=== PATIENT | female | born 1995 | race Caucasian/White ===

== ENCOUNTER 2023-05-12 14:13 | Emergency (ER) | payer OTHER, MEDICAID, SELFPAY ==
[2023-05-12 14:47] VITALS: BP 175/74; PULSE 92; RESP 20; TEMP 36.5; O2SAT 100; BMI 25.2
--- NOTE | 2023-05-12 15:06 | ED.ABDPAIN ---
HPI - Abdominal Pain <Marichuy Barrow PA-C - Last Filed: 05/12/23 21:14> General Chief Complaint: Abdominal Pain Stated Complaint: rt side abd pain Time Seen by Provider: 05/12/23 14:50 Source: patient Mode of arrival: Ambulatory History of Present Illness HPI narrative: This is a 27-year-old female who presents with concern for right low 7/10 abdominal pain present for 5 days but worsening yesterday and today. Patient states that the pain began 5 days ago and initially felt a little bit low like it might be in her bladder on the right side and then she says she felt it gradually creeping up her side on the front and getting higher up in her belly. She says the pain is worse when she is sitting and worse with moving her leg on the right. She describes it as an intense and constant aching pain. She has not had fevers or chills and says her appetite has been okay. She did have 1 episode of vomiting due to the pain 3 days ago. She has had slightly softer than usual stools but no diarrhea or constipation. She denies any chance of states her last menstrual period ended on April 19 and her menses are regular approximately 35 days apart. She does endorse having extremely painful menses when they happen. She denies any urinary symptoms of urgency or frequency but does state that she is noticed that her urine feels hot sometimes when she pees recently. She can not think of anything that she did physically that might have pulled a muscle or triggered her symptoms. She denies fevers chills or any other symptoms. Also denies any concern for states she is with 1 partner who has vasectomy, and has had no concern for sexually transmitted infections and no change in vaginal discharge. Related Data Previous Rx's Medication Instructions Recorded nitrofurantoin 100 mg PO BID 7 days #14 caps 05/12/23 monohydrate/macrocrystals 100 mg capsule (Macrobid) Allergies Allergy/AdvReac Type Severity Reaction Status Date / Time Sulfa (Sulfonamide Allergy Intermediate Hives Verified 05/12/23 11:41 Antibiotics) Review of Systems <Marichuy Barrow PA-C - Last Filed: 05/12/23 21:14> Review of Systems Narrative: See HPI Patient History <Marichuy Barrow PA-C - Last Filed: 05/12/23 21:14> Social History Smoking Status: Current every day smoker Smoking Status: Current every day smoker alcohol intake frequency: holidays/special occasions only Substance Use Type: marijuana Exam <Marichuy Barrow PA-C - Last Filed: 05/12/23 21:14> Narrative Exam Narrative: GENERAL: [27] year old patient appears stated age. Well-developed patient, in mild distress, uncomfortable appearing, standing up as it is more comfortable than sitting due to the pain. HEAD: Atraumatic. Normocephalic. EYES: Pupils equal round and reactive. Extraocular motions intact. No scleral icterus. No injection or drainage. ENT: Nose without bleeding, purulent drainage. Airway patent. NECK: Trachea midline. Non tender CARDIOVASCULAR: Regular rate and rhythm without murmurs, gallops, or rubs. RESPIRATORY: Clear to auscultation. Breath sounds equal bilaterally. No wheezes, rales, or rhonchi. GASTROINTESTINAL: Abdomen soft, there is moderate tenderness in the right lower quadrant, positive Rovsing sign, positive obturator sign, pain increases with percussion over the right lower quadrant, mild suprapubic tenderness otherwise non-tender, nondistended, there is no flank tenderness noted/no CVA tenderness. EXTREMITIES: No edema or joint tenderness. BACK: Nontender without deformity or crepitance. No flank tenderness. NEURO: AOx3. SKIN: No rash or erythema of visible areas Initial Vital Signs Initial Vital Signs: Vital Signs Temperature 97.7 F 05/12/23 14:47 Pulse Rate 92 H 05/12/23 14:47 Respiratory Rate 05/12/23 14:47 Blood Pressure 175/74 H 05/12/23 14:47 Pulse Oximetry 100 05/12/23 14:47 Oxygen Delivery Method Room Air 05/12/23 14:47 <Erendira Davies DO - Last Filed: 05/13/23 09:49> Initial Vital Signs Initial Vital Signs: Vital Signs Temperature 97.7 F 05/12/23 14:47 Pulse Rate 92 H 05/12/23 14:47 Respiratory Rate 20 05/12/23 14:47 Blood Pressure 175/74 H 05/12/23 14:47 Pulse Oximetry 100 05/12/23 14:47 Oxygen Delivery Method Room Air 05/12/23 14:47 Course <Marichuy Barrow PA-C - Last Filed: 05/12/23 21:14> Orders Ordered: Discontinued Medications Acetaminophen (Acetaminophen 325 Mg Tablet) 650 mg PO NOW ONE Stop: 05/12/23 15:08 Last Admin: 05/12/23 15:25 Dose: 650 mg Documented By: NEHA Ketorolac Tromethamine (Ketorolac 30 Mg/Ml Vial) 15 mg IV NOW ONE Stop: 05/12/23 15:08 Last Admin: 05/12/23 15:26 Dose: 15 mg Documented By: NEHA Vital Signs Vital signs: Vital Signs - 8 hr 05/12/23 14:47 05/12/23 18:11 Temperature 97.7 F 98.2 F Pulse Rate 92 H 80 Respiratory Rate 20 18 Blood Pressure 175/74 H 126/75 Pulse Oximetry 100 100 Oxygen Delivery Method Room Air Room Air <Erendira Davies DO - Last Filed: 05/13/23 09:49> Orders Ordered: Discontinued Medications Acetaminophen (Acetaminophen 325 Mg Tablet) 650 mg PO NOW ONE Stop: 05/12/23 15:08 Last Admin: 05/12/23 15:25 Dose: 650 mg Documented By: NEHA Ketorolac Tromethamine (Ketorolac 30 Mg/Ml Vial) 15 mg IV NOW ONE Stop: 05/12/23 15:08 Last Admin: 05/12/23 15:26 Dose: 15 mg Documented By: NEHA Vital Signs Vital signs: Vital Signs - 8 hr 05/12/23 14:47 05/12/23 18:11 Temperature 97.7 F 98.2 F Pulse Rate 92 H 80 Respiratory Rate 20 18 Blood Pressure 175/74 H 126/75 Pulse Oximetry 100 100 Oxygen Delivery Method Room Air Room Air MDM - Abdominal Pain <Marichuy Barrow PA-C - Last Filed: 05/12/23 21:14> Differential Diagnosis Differential diagnosis: Likely abdominal pain, acute appendicitis, constipation, endometriosis, pancreatitis, small bowel obstruction and other (UTI, pyelonephritis, ureterolithiasis) Medical Records Attestation: I reviewed the patient's medical records. Lab Data Attestation: I reviewed the patient's lab results. 05/12/23 15:00 05/12/23 15:00 Labs: Lab Results 05/12/23 05/12/23 Range/Units 15:00 15:16 WBC 8.4 (4.5-11.0) X10^3/uL RBC 4.62 (4.0-5.2) X10^6/uL Hgb 13.9 (12.0-16.0) g/dL Hct 40.6 (36-46) % MCV 87.8 (80-100) fL MCH 30.2 (26-34) PG MCHC 34.4 (30-36) % RDW 12.6 (11.6-14.8) % Plt Count 287 (150-400) X10^3/uL Neut % (Auto) 65.1 (50-75) % Lymph % (Auto) 26.1 (25-40) % [place] % (Auto) 6.8 (3-14) % Eos % (Auto) 0.8 L (2-4) % Baso % (Auto) 1.2 (0-2) % Neut # (Auto) 5500 (8528-1078) /uL Lymph # (Auto) 2200 (4882-0953) /uL [place] # (Auto) 600 (0-900) /uL Eos # (Auto) 100 (0-450) /uL Baso # (Auto) 100 (0-100) /uL Sodium 136 L (137-145) mmol/L Potassium 3.6 (3.4-5.1) mmol/L Chloride 102 (98-107) mmol/L Carbon Dioxide 23 (22-32) mmol/L BUN 12 (7-17) mg/dL Creatinine 0.68 (0.52-1.04) mg/dL Estimated GFR > 60 (>60) mL/min BUN/Creatinine Ratio 17.6 (6-22) Glucose 103 H (70-100) mg/dL Calcium 10.2 (8.4-10.2) mg/dL Total Bilirubin 0.6 (0.2-1.3) mg/dL AST 25 (14-36) IU/L ALT 16 (<35) IU/L Alkaline Phosphatase 58 (38-126) U/L C-Reactive Protein 0.9 (<1.0) mg/dL Total Protein 8.4 H (6.3-8.2) g/dL Albumin 4.7 (3.5-5.0) g/dL Globulin 3.7 (1.7-4.1) g/dL Albumin/Globulin Ratio 1.3 (1.0-2.8) Lipase 68 (23-300) U/L Urine Color Yellow Urine Appearance Clear Urine pH 5.0 (4.5-8.0) Ur Specific [place] 1.025 (1.000-1.035) Urine Protein Negative (Negative) Urine Glucose (UA) Negative (Negative) g/dL Urine Ketones Trace H (NEGATIVE) Urine Occult Blood Trace-intact (Negative) Urine Nitrate Negative (Negative) Urine Bilirubin Negative (NEGATIVE) Urine Urobilinogen 0.2 (0.2) E.U./dL Ur Leukocyte Esterase 1+ H (NEGATIVE) Urine RBC 0-1/hpf (0-5/HPF) Urine WBC 5-10/hpf H (0-5/HPF) Ur Squamous Epith Cells 1-5 /hpf (0-5/HPF) Urine Bacteria Occasional (0-1) (None) Ur Culture Indicated? Specimen cultured Vol Urine Centrifuged 10ml (spun) Point of care testing: Point of Care Testing Test Results Negative Urine Dip Bedside Urine Glucose Negative Bedside Urine Bilirubin - Negative Bedside Urine Ketone +/- 5 Urine Specific [place] 1.030 Bedside Urine Occult Blood +/- Bedside Urine pH 6.0 Bedside Urine Protein - Negative Bedside Urine Urobilinogen - Negative Bedside Urine Nitrite - Negative Bedside Urine Leukocytes + [address] scan - abdomen/pelvis: My Impression: See below Radiologist's Impression: Radiology read print out was not obtainable during this patient's stay/at time of chart completion due to system wide computer air not transferring these to [email or web address] charting system. Did discuss this patient with Radiology prior to discharge and they advised that her imaging read showed no evidence of appendicitis; normal appearing CT scan; they did note that there was a small amount of free fluid in the pelvis however that this was in an amount consistent with a physiologically normal finding for this 27-year-old menstruating patient. Treatment and Disposition Shared decision making:: Shared decision-making was used in determining plan for evaluation today in the emergency department plan for outpatient follow-up MDM Narrative Medical decision making narrative: This is an uncomfortable appearing previously healthy 27-year-old woman with no history of similar who presented with 5 days of right-sided abdominal pain worsening yesterday and today 7/10. Exam was concerning for appendicitis given her positional pain Rovsing sign positive and obturator sign positive, she also had some mild right lower quadrant tenderness however no peritoneal findings. She was sent from [facility] as they did a urine dip which showed nothing this morning and they advised her to come to the emergency department for further. Urine and labs were checked today, UA mildly suspicious on dip however not deemed to necessarily explain patient's significant pain and exam findings. CBC and CMP returned unremarkable she had no leukocytosis, her H&H was in the normal range, mid range, did reexamine the patient and she had persistent pain 09/21 despite Toradol and remained with positive exam findings suggestive of appendicitis. After discussion with the patient's CT abdomen pelvis was obtained with contrast. This returned without evidence of appendicitis or other concerning findings. Discussed this with the patient and as her urine micro was suspicious for UTI and some of her symptoms are consistent with this in that she described a hot sensation with urination and that the pain originally began low down in her bladder and seemed to travel to the right side and upwards, suspect that she does have a urinary tract infection potentially explaining her symptoms, also possible that her menses which are going to begin in the next 5-7 days are causing some of her symptoms and this there could be a hormonal or structural component to her pain associated with this. Internal bleeding seems less likely in this patient who other than pain and some mild urinary symptoms is asymptomatic, without dizziness/lightheadedness with a normal H&H. Counseled the patient that she may benefit from having an ultrasound to evaluate her ovaries as an outpatient given she has chronic very painful menses. This was not performed today given evidence of UTI and negative CT scan findings. Seven day course of Macrobid prescribed. Patient is counseled regarding careful return precautions and monitoring for new or worsening or persistent symptoms. She will try Tylenol and ibuprofen for pain which she had not tried previously at home. She was notably hypertensive when she came in however I think this is likely associated with anxiety and concern over possible causes of her symptoms. Her blood pressure improved prior to discharge. Return precautions provided, follow-up plan discussed, all questions answered. <Erendira Davies, DO - Last Filed: 05/13/23 09:49> Lab Data Labs: Lab Results 01/29/24 01/29/24 Range/Units 15:00 15:16 WBC 8.4 (4.5-11.0) X10^3/uL RBC 4.62 (4.0-5.2) X10^6/uL Hgb 13.9 (12.0-16.0) g/dL Hct 40.6 (36-46) % MCV 87.8 (80-100) fL MCH 30.2 (26-34) PG MCHC 34.4 (30-36) % RDW 12.6 (11.6-14.8) % Plt Count 287 (150-400) X10^3/uL Neut % (Auto) 65.1 (50-75) % Lymph % (Auto) 26.1 (25-40) % [place] % (Auto) 6.8 (3-14) % Eos % (Auto) 0.8 L (2-4) % Baso % (Auto) 1.2 (0-2) % Neut # (Auto) 5500 (8864-2647) /uL Lymph # (Auto) 2200 (1498-4055) /uL [place] # (Auto) 600 (0-900) /uL Eos # (Auto) 100 (0-450) /uL Baso # (Auto) 100 (0-100) /uL Sodium 136 L (137-145) mmol/L Potassium 3.6 (3.4-5.1) mmol/L Chloride 102 (98-107) mmol/L Carbon Dioxide 23 (22-32) mmol/L BUN 12 (7-17) mg/dL Creatinine 0.68 (0.52-1.04) mg/dL Estimated GFR > 60 (>60) mL/min BUN/Creatinine Ratio 17.6 (6-22) Glucose 103 H (70-100) mg/dL Calcium 10.2 (8.4-10.2) mg/dL Total Bilirubin 0.6 (0.2-1.3) mg/dL AST 25 (14-36) IU/L ALT 16 (<35) IU/L Alkaline Phosphatase 58 (38-126) U/L C-Reactive Protein 0.9 (<1.0) mg/dL Total Protein 8.4 H (6.3-8.2) g/dL Albumin 4.7 (3.5-5.0) g/dL Globulin 3.7 (1.7-4.1) g/dL Albumin/Globulin Ratio 1.3 (1.0-2.8) Lipase 68 (23-300) U/L Urine Color Yellow Urine Appearance Clear Urine pH 5.0 (4.5-8.0) Ur Specific [place] 1.025 (1.000-1.035) Urine Protein Negative (Negative) Urine Glucose (UA) Negative (Negative) g/dL Urine Ketones Trace H (NEGATIVE) Urine Occult Blood Trace-intact (Negative) Urine Nitrate Negative (Negative) Urine Bilirubin Negative (NEGATIVE) Urine Urobilinogen 0.2 (0.2) E.U./dL Ur Leukocyte Esterase 1+ H (NEGATIVE) Urine RBC 0-1/hpf (0-5/HPF) Urine WBC 5-10/hpf H (0-5/HPF) Ur Squamous Epith Cells 1-5 /hpf (0-5/HPF) Urine Bacteria Occasional (0-1) (None) Ur Culture Indicated? Specimen cultured Vol Urine Centrifuged 10ml (spun) Point of care testing: Point of Care Testing Test Results Negative Urine Dip Bedside Urine Glucose Negative Bedside Urine Bilirubin - Negative Bedside Urine Ketone +/- 5 Urine Specific [place] 1.030 Bedside Urine Occult Blood +/- Bedside Urine pH 6.0 Bedside Urine Protein - Negative Bedside Urine Urobilinogen - Negative Bedside Urine Nitrite - Negative Bedside Urine Leukocytes + 70 Esterase Discharge Plan Departure Patient Disposition: Home Clinical Impression: Right lower quadrant pain, Dysuria Activity Restrictions/Additional Instructions: *You have been diagnosed with [right lower quadrant pain, dysuria, probable UTI] *What to do: *Please continue to take your regular medications as directed. [ 1] New medication prescriptions sent to your pharmacy: [Macrobid] [ ] New medication written as a paper prescription [ ] No new medications given *Please follow up with your primary care provider in 2-3 days, call for an appointment. Let them know you were seen in the Emergency Department and that we ask that you be seen in follow up. We will electronically transmit a record of today's note if your PCP is in our system. Thank you for letting us be part of your care today in the emergency department. Your urine was mildly suspicious for an infection on dip and we sent it to lab and it did look more suspicious for urinary tract infection, given this and some of your symptoms we should definitely treat for urinary tract infection. You had some findings on exam and her history concerning for possible appendicitis, and we did do a CT scan to evaluate for this which did not show a problem there. I would recommend you continue to hydrate and please take all of the antibiotics as prescribed. As we discussed today during her visit I would encourage you to follow-up with your primary care women's health provider regarding your heavy menses as there is a chance that some of the pain or having could be related to this given that this is going to be starting soon for you. *If you do not have a primary care provider please contact the [facility] Resource line at [phone]. They will ask some questions about your medical history and help get you set up with a doctor in the community. *Return to Emergency Department if you should have any new, worsening or concerning symptoms, such as [fever greater than 101 F, shaking chills, worsening pain, persistent vomiting or other bothersome symptoms] Prescriptions: New nitrofurantoin monohyd/m-cryst [Macrobid] 100 mg capsule 100 mg PO BID 7 Days Qty: 14 0RF Rx Instructions: must administer with a meal/food Referrals: Shelly Curran PA-C [Primary Care Provider] - Stand Alone Forms: Patient Portal/API ED Sign-out <Erendira Davies DO - Last Filed: 05/13/23 09:49> Cosign ED Attending Arabellaature Attestation: I was immediately available in the department for consultation.
[2023-05-12] MEDS: ACETAMINOPHEN 325 MG TABLET 650 MG PO (15:25)
[2023-05-12 15:26] LABS: Add Manual Diff / Slide Review NO; Basophils Absolute Auto 100 /uL (0-100); Basophils Percent Auto 1.2 % (0-2); Eosinophils Absolute Auto 100 /uL (0-450); Eosinophils Percent Auto 0.8 % (2-4); Hematocrit 40.6 % (36-46); Hemoglobin 13.9 g/dL (12.0-16.0); Lymphocytes Absolute Auto 2200 /uL (1100-4500); Lymphocytes Percent Auto 26.1 % (25-40); Mean Corpuscular HGB Conc 34.4 % (30-36); Mean Corpuscular Hemoglobin 30.2 PG (26-34); Mean Corpuscular Volume 87.8 fL (80-100); Monocytes Absolute Auto 600 /uL (0-900); Monocytes Percent Auto 6.8 % (3-14); Neutrophils Absolute Auto 5500 /uL (1500-7000); Neutrophils Percent Auto 65.1 % (50-75); Platelet Count 287 X10^3/uL (150-400); Red Blood Cell Count 4.62 X10^6/uL (4.0-5.2); Red Cell Distribution Width 12.6 % (11.6-14.8); White Blood Cell Count 8.4 X10^3/uL (4.5-11.0)
[2023-05-12] MEDS: KETOROLAC 30 MG/ML VIAL 15 MG IV (15:26)
[2023-05-12 15:39] LABS: Appearance Urine UA CLEAR; Bilirubin Urine UA NEGATIVE (NEGATIVE); Color Urine UA YELLOW; Glucose Urine UA NEGATIVE (Negative); Ketones Urine UA TRACE (NEGATIVE); Leukocyte Esterase Urine UA 1+ (NEGATIVE); Nitrite Urine UA NEGATIVE (Negative); Occult Blood Urine UA TRACE-INTACT (Negative); Protein Urine UA NEGATIVE (Negative); Specific Gravity Urine UA 1.025 (1.000-1.035); Urobilinogen Urine UA 0.2 E.U./dL (0.2)
[2023-05-12 15:43] LABS: Alanine Aminotransferase 16 IU/L (<35); Albumin 4.7 g/dL (3.5-5.0); Albumin Globulin Ratio 1.3 (1.0-2.8); Alkaline Phosphatase 58 U/L (38-126); Aspartate Aminotransferase 25 IU/L (14-36); BUN Creatinine Ratio 17.6 (6-22); Bilirubin Total 0.6 mg/dL (0.2-1.3); Blood Urea Nitrogen 12 mg/dL (7-17); Calcium 10.2 mg/dL (8.4-10.2); Carbon Dioxide 23 mmol/L (22-32); Chloride 102 mmol/L (98-107); Estimated Glomerular Filt Rate > 60 mL/min (>60); Globulin 3.7 g/dL (1.7-4.1); Glucose 103 mg/dL (70-100); HEMOLYSIS < 15 (0-50); Lipase 68 U/L (23-300); Potassium 3.6 mmol/L (3.4-5.1); Sodium 136 mmol/L (137-145); Total Protein 8.4 g/dL (6.3-8.2)
--- NOTE | 2023-05-12 15:47 | DI.CT.S_ITS ---
PROCEDURE: CT ABDOMEN PELVIS W CON INDICATIONS: RLQ pain 5D +Rovsing/obturator sign no leukocyt Ap vs cyst TECHNIQUE: After the administration of intravenous contrast, axial sections acquired from the lung bases to the pubic symphysis. Coronal and sagittal reformats were performed. For radiation dose reduction, the following was used: automated exposure control, adjustment of mA and/or kV according to patient size. COMPARISON: None. FINDINGS: Image quality: Diagnostic. Lower Chest: No significant findings. ABDOMEN: Liver: No solid mass. Gallbladder: No radiopaque gallstones or wall thickening. Biliary ducts: No biliary dilation. Pancreas: No ductal dilation. Spleen: Size is within normal limits. Adrenal Glands: No adrenal nodules. Kidneys and Ureters: No hydronephrosis. No solid mass. No complex renal cystic lesion which requires follow up. Stomach and Bowel: Normal colonic caliber, without significant wall thickening. Normal appendix. Peritoneum: Small amount of free fluid in the pelvis, within physiological limits in a menstruating female.. No free air. Ventral Wall: No hernia. Abdominal Nodes: No retroperitoneal or mesenteric adenopathy by size criteria. Vessels: Aorta and inferior vena cava are normal in size. PELVIS: Pelvic Organs: Unremarkable. Bladder: Unremarkable. Pelvic Nodes: No enlarged lymph nodes. Miscellaneous: No inguinal hernias are seen. Bones: No aggressive osseous abnormality. IMPRESSION: 1. No acute process. 2. Normal appendix. 3. Small amount of free fluid in the pelvis, within physiological limits in a menstruating female. Dictated by: Sheryl Lai M.D. on 05/12/2023 at 16:41 Approved by: Sheryl Lai M.D. on 05/12/2023 at 16:43
[2023-05-12 15:51] LABS: Bacteria Urine Occasional (0-1); Culture Indicated Urine Specimen Cultured; RBC Urine 0-1/HPF (0-5/HPF); Squamous Epithelial Cell Urine 1-5 /HPF (0-5/HPF); Urine Volume 10mL (spun); WBC Urine 5-10/HPF (0-5/HPF)
[2023-05-12 16:10] LABS: C-Reactive Protein Quant 0.9 mg/dL (<1.0)
[2023-05-12 18:11] VITALS: BP 126/75; PULSE 80; RESP 18; TEMP 36.8; O2SAT 100
== END 2023-05-12 18:20 | disposition home or self-care (01) ==
PROVIDERS: Emergency Provider Student in an Organized Health Care Education/Training Program; PCP Physician Assistant
DX: R10.31 Right lower quadrant pain (principal); R30.0 Dysuria
CPT/HCPCS: 74177; 80053; 81001; 81002; 81003; 81025; 83690; 85025; 86140; 87077; 87086; 87186; 96374; 99284; J1885